=== PATIENT | female | born 1995 | race Caucasian/White ===

== ENCOUNTER 2019-09-10 10:57 | Emergency (ER) | payer SELFPAY ==
[2019-09-10 11:05] VITALS: BP 146/101; PULSE 106; RESP 18; TEMP 37.2; O2SAT 99; BMI 27.4
[2019-09-10 11:10] VITALS: BP 146/101; PULSE 76; RESP 18; O2SAT 100
--- NOTE | 2019-09-10 11:27 | W.ED.GENADLT ---
HPI - General Adult General: Chief complaint: General Medical Stated complaint: ALERGIC REACTION Time Seen by Provider: 09/10/19 11:04 History of Present Illness: HPI narrative: 24-year-old female comes in complaining of a rash that started this morning since on her trunk and extremities. She tried some [id number] Benadryl prior products without much improvement. She is not had a rash like this before she denies any trouble breathing or swallowing. It is only mildly pruritic on the extremities Onset (ago): hour(s) Location: chest, back, abdomen, left, right, upper extremity and lower extremity Severity: moderate Quality: other (Pruritic) Relieving factors: none Exacerbating factors: none Associated symptoms: Reports no associated symptoms; Deny chest pain, cough, dyspnea, fevers/chills, headache(s), malaise, nausea or rash Treatments prior to arrival: other (Benadryl) Review of Systems Const: Denies: malaise ENMT: Denies: throat pain, ear or mastoid pain, nasal discharge or nasal congestion Card: Denies: chest pain Resp: Denies: dyspnea GI: Denies: nausea : Denies: flank pain, difficulty voiding, dysuria, urinary frequency or urinary urgency Skin/Breast: Denies: rash or pruritus Neuro: Denies: headache(s) PFSH ED PFSH: Social History Smoking and tobacco status: current every day smoker Female Reproductive History: Date of last menstrual period: 08/21/19 Physical Exam Const: COMMON NORMALS: no acute distress GENERAL APPEARANCE: cooperative and comfortable ORIENTATION/CONSCIOUSNESS: Yes awake, Yes oriented to person, Yes oriented to place and Yes oriented to time HENMT: COMMON NORMALS: normocephalic, atraumatic, hearing grossly normal bilaterally, external ears normal, EAC's normal, TM's normal bilaterally, Normal nasal mucous membranes and turbinates present, moist oral mucous membranes and oropharynx normal HEAD & SCALP: normocephalic and atraumatic NOSE: Normal nasal mucous membranes and turbinates present EXTERNAL EAR: Yes external ears normal EXTERNAL AUDITORY CANAL: EAC's normal TYMPANIC MEMBRANE: TM's normal bilaterally Eye: COMMON NORMALS: Equal, round and reactive pupils present, EOMs intact bilaterally, conjunctivae normal and no scleral icterus CONJUNCTIVA: Yes conjunctivae normal PUPIL: Yes Equal, round and reactive pupils present Neck/C-Spine: COMMON NORMALS: full ROM, no lymphadenopathy, supple and no JVD Lymph: LYMPHATIC: no lymphadenopathy noted and no lymphedema noted Resp: COMMON NORMALS: normal respiratory effort, No retractions, No use of accessory muscles and clear to auscultation bilaterally AUSCULTATION: clear to auscultation bilaterally Cardio: COMMON NORMALS: no JVD, regular rate, regular rhythm and No murmurs present (Cardio) RATE: regular rate RHYTHM: regular rhythm GI: COMMON NORMALS: Soft to palpation and No hepatosplenomegaly present AUSCULTATION: Yes normoactive bowel sounds PALPATION: Yes Soft to palpation, No Tenderness to palpation present (GI), No Guarding due to palpation present (GI) and Yes No hepatosplenomegaly present Extremity: COMMON NORMALS: normal to inspection, capillary refill normal, no clubbing, cyanosis or edema, no calf tenderness and no pedal edema Neuro: SENSORIUM/ORIENTATION: Yes oriented to person, Yes oriented to place and Yes oriented to time Skin: NARRATIVE SKIN EXAM: Fine confluent facial rash on the upper extremities lower extremities and the trunk it is mildly reddened raised and coalescing. There is no urticarial wheals or hives. Course Vital Signs: Vital signs: Vital Signs Temperature 98.9 F 09/10/19 11:05 Pulse Rate 86 09/10/19 12:37 Respiratory Rate 14 09/10/19 12:37 Blood Pressure 131/85 09/10/19 12:37 Pulse Oximetry 100 09/10/19 12:37 MDM - General Adult MDM Narrative: Medical decision making narrative: Reviewed findings with the patient. Discharge home on Medrol Dosepak hydroxyzine return to the emergency room if worsens or changes follow-up with primary care. Discharge Plan Discharge Patient Disposition: Home, Self-Care Clinical Impression: Allergic reaction Condition: Stable Prescriptions: New Medrol (Jose David) 4 mg tablets,dose pack See Rx Instructions .ROUTE .COMPLEX Qty: 21 RF: 0 hydroxyzine pamoate 25 mg capsule 25 mg PO Q6H PRN (Reason: itching) Qty: 20 RF: 0 No Action Isibloom 0.15-0.03 mg Tablet 1 tab PO DAILY RF: 0 Discharge Orders: Discharge Order (Routine); Ordered 09/10/19 Ordered By: Dixon Patton Discharge Diet: Usual diet Discharge Activity: Increase activity as tolerated Activity Restrictions/Additional Instructions: Follow-up with your primary care doctor as needed return to the emergency room if if significant worsening or change symptoms Discharge Date/Time: 09/10/19 12:38 Coding Level of Care Code ED Installation Superintendent for Celsa Fwd Exam Comprehensive
[2019-09-10] MEDS: famotidine 20 mg/2 mL INJ 40 MG IVP (11:49)
[2019-09-10] MEDS: diphenhydrAMINE 50 mg/mL SDV 1mL 25 MG IM (11:49)
[2019-09-10 12:37] VITALS: BP 131/85; PULSE 86; RESP 14; O2SAT 100
== END 2019-09-10 12:38 | disposition home or self-care (01) ==
PROVIDERS: Emergency Provider Family Medicine
DX: T78.40XA Allergy, unspecified, initial encounter (principal); F17.210 Nicotine dependence, cigarettes, uncomplicated
CPT/HCPCS: 12345; 96374; 96375; 99282; 99283; J1200; J2930; J3490

== ENCOUNTER 2020-10-15 10:44 | Outpatient (CLI) | payer BC, SELFPAY ==
--- NOTE | 2020-10-15 11:00 | MR_ITS ---
WS: [id number] MRI RIGHT KNEE NONCONTRAST TECHNIQUE: Axial PD, coronal PD fat sat, coronal PD, sagittal PD, and sagittal PD fat-sat images obta ined. CLINICAL INFORMATION: RIGHT ANTERIOR KNEE PAIN COMPARISON: None. FINDINGS: Normal anatomic alignment. Distal quadriceps and patella tendons are intact. Normal patella. Normal A CL and PCL. Normal medial and lateral meniscus. No acute appearing meniscal tears. Tibial plateau is normal in appearance. Medial and lateral collateral ligaments are normal. No bone marrow contusion or fracture. Normal popliteal fossa. Normal medial and lateral patellar retinaculum. Mild chondromalacia patella. No subchondral edema. IMPRESSION: 1. Normal ACL and PCL. 2. No acute appearing meniscal tears. 3. Mild chondromalacia patella. No subchondral edema. 4. Medial and lateral collateral ligaments are normal. 5. No other significant findings. Outbridge grading: grade I: focal areas of hyperintensity with normal contour
== END 2020-10-15 10:45 | disposition home or self-care (01) ==
LOC: RADSHAW 10:47
PROVIDERS: Visit Provider Nurse Practitioner Family
DX: M25.561 Pain in right knee (principal); M22.41 Chondromalacia patellae, right knee
CPT/HCPCS: 73721

== ENCOUNTER 2020-11-03 08:22 | Outpatient (RCR) | payer BC, SELFPAY | END 2020-11-24 23:59 | disposition home or self-care (01) | LOC: SPT 08:22 | PROVIDERS: PCP Nurse Practitioner Family; Referring Provider Orthopaedic Surgery; Visit Provider Orthopaedic Surgery | DX: M25.561 Pain in right knee (principal) | CPT/HCPCS: 97110; 97162; G0283 ==

== ENCOUNTER 2020-11-25 06:00 | Outpatient (RCR) | payer BC, SELFPAY | END 2020-12-24 23:59 | disposition home or self-care (01) | LOC: SPT 06:00 | PROVIDERS: PCP Nurse Practitioner Family; Referring Provider Orthopaedic Surgery; Visit Provider Orthopaedic Surgery | DX: M25.561 Pain in right knee (principal) | CPT/HCPCS: 97110; G0283 ==

== ENCOUNTER → 2022-01-09 12:03 | Outpatient (BNVA) | payer BC, SELFPAY | PROVIDERS: PCP Nurse Practitioner Family; Visit Provider Family Medicine | DX: M79.671 Pain in right foot (principal); W22.09XA Striking against other stationary object, initial encounter | CPT/HCPCS: 73630 ==

== ENCOUNTER 2023-04-18 07:11 | Outpatient (CLI) | payer OTHER, SELFPAY ==
--- NOTE | 2023-04-18 | US_ITS ---
WS: [id number] OBSTETRICAL ULTRASOUND COMPLETE HISTORY: ANATOMY SCAN COMPARISON: None available. Single intrauterine gestation in Cephalic presentation. Cervix is Closed and normal length. Cervical length is 4.5 cm. Normal amount of amniotic fluid surrounds the fetus. Placenta: Posterior, no previa or abruption. Placenta grade 1 Heart: 133 BPM. Four chambers are identified. RIGHT and LEFT outflow tracts are unremarkable. Anatomy: Intracranial structures and spine are normal. kidneys, stomach and urinary bladd er are unremarkable. Abdominal wall, three-vessel cord and cord insertion site are normal. 4 extremities are present. profile: Unremarkable. Gender: Male. measurements: BPD = 5.3 cm = 22w0d; HC = 19.6 cm = 21w5d; AC = 16.5 cm = 21w4d; FL = 3.7 cm = 21w4d; EFW: 438 g. Biometry is internally concordant. AGA by ultrasound: 21w5d KARMA by ultrasound: 08/24/2023 IMPRESSION: 1. Single intrauterine gestation of 21w5d with an KARMA of 08/24/2023. 2. Unremarkable screening survey of anatomy.
== END 2023-04-18 07:12 | disposition home or self-care (01) ==
LOC: RAD 07:12
PROVIDERS: PCP Nurse Practitioner Family; Visit Provider Family Medicine
DX: Z36.89 Encounter for other specified antenatal screening (principal)
CPT/HCPCS: 76805

== ENCOUNTER 2023-08-30 16:23 | Inpatient (IN) | payer OTHER, SELFPAY ==
[2023-08-30] VITALS (28 sets, daily range): BP systolic 117–154; BP diastolic 61–87; PULSE 72–141; RESP 18; TEMP 36.9–37.1; BMI 33.7
[2023-08-30] MEDS: lactated ringers 1,000 ML 125 ML IV (16:34)
--- NOTE | 2023-08-30 16:36 | P.HP_ITS ---
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 PMHx includes borderline pre-eclampsia in her first - not on blood pressure medication and not induced early. Denies LOF, vaginal bleeding. Good movement. care was good and starting in first trimester with [facility]- transferred in 2nd trimester with good regular care following. Labs Blood type OB HPI: A (+) positive Rubella: Equivocal RPR: Negative GBS: Negative HBsAG: Negative Other Lab Information: HIV negative HCV Ab negative GC/Chlam negative,Trich negative Initial H/H 12.4/36.5 1hr GTT passed (93) 3rd trimester H/H 11.2/32.8 Review of Systems 2 Const: Denies: fever(s) or chills Card: Denies: chest pain or palpitations Resp: Denies: dyspnea or productive cough : Denies: dysuria or vaginal bleeding Skin/Breast: Denies: rash or pruritus Medications/Allergies Home Medications Medication Instructions Recorded Confirmed Last Taken Type tramadol 50 mg tablet 50 mg PO BID PRN pain 5 days #10 01/09/22 01/09/22 Unknown Rx tabs Allergies Allergy/AdvReac Type Severity Reaction Status Date / Time amoxicillin Allergy Unknown Verified 01/09/22 11:45 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 2 PFSH: Social History Smoking and tobacco/nicotine status: current every day tobacco/nicotine user History History History 2 3 Term 1 0 Miscarriages/Ectopic 1 Living Children 1 Vitals/I&O/Wt Last Vital Signs Pulse 90 08/30/23 16:34 BP 139/70 08/30/23 16:34 Physical Exam 2 Const: COMMON NORMALS: no limitations, healthy appearing and alert OTHER: pain with contractions Resp: COMMON NORMALS: normal respiratory effort and clear to auscultation bilaterally Cardio: COMMON NORMALS: no JVD, regular rate, regular rhythm, S1 normal heart sound present, S2 normal heart sound present and No murmurs present (Cardio) Extremity: NARRATIVE EXTREMITY EXAM: No LE edema Psych: COMMON NORMALS: normal affect and speech normal Data 08/30/23 16:20 Results Labs OB ([facility]): 2 Blood Type A Positive 08/30/23 Antibody Screen Negative 08/30/23 Hct 32.2 % (36-47) L 08/30/23 Hgb 10.30 g/dL (11.27-16.99) L 08/30/23 Rho(D) Type Rh positive 08/30/23 Plt Count 232 10^3/cmm (157-399) 08/30/23 Urine Opiates Screen Negative ng/mL (Negative) 08/30/23 Ur Barbiturates Screen Negative ng/mL (Negative) 08/30/23 Ur Phencyclidine Scrn Negative ng/mL (Negative) 08/30/23 Ur Amphetamines Screen Negative ng/mL (Negative) 08/30/23 U Benzodiazepines Scrn Negative ng/mL (Negative) 08/30/23 Urine Cocaine Screen Negative ng/mL (Negative) 08/30/23 U Marijuana (THC) Screen Negative ng/mL (Negative) 08/30/23 A&P Assessment and plan (1) Term : (2) Spontaneous onset of labor: Plan 28yo at 40w0d admitted for labor. Routine CBC, Blood typing. Expectant management. Initial SVE 6cm. Continuous EFM. Category I FHT on admission. Fentanyl protocol, may have epidural if desired. Attestations 2 Medical Necessity Statement*: Mary Ellen Lindsay's hospital stay will require greater than 2 midnights for labor and delivery and care. Coding Level of Care Code Acute Code for Chg Fwd Diagnoses Term Z34.90 Spontaneous onset of labor
[2023-08-30 16:38] LABS: Basophils % 0.3 %; Eosinophils # 0.1 10^3/uL (0.0-0.8); Eosinophils % 0.6 %; Hematocrit 32.2 % (36-47); Lymphocytes # 1.1 10^3/uL (0.8-4.8); Lymphocytes % 10.5 %; Mean Corpuscular Hemoglobin 26.7 pg (27-33); Mean Corpuscular Volume 83.4 fl (85-98); Mean Platelet Volume 11.1 fL (7.4-10.4); Monocytes # 0.7 10^3/uL (0.2-0.9); Monocytes % 6.7 %; Neutrophils # 8.79 10^3/uL (1.8-7.7); Nucleated Red Blood Cells % 0 %; Platelet Count 232 10^3/cmm (157-399); Red Blood Count 3.86 10^6/uL (3.85-5.65); Red Cell Distribution Width 14.9 % (12.1-15.1); White Blood Count 10.86 10^3/uL (3.29-11.43)
[2023-08-30 16:51] LABS: Amphetamines Screen Urine Negative (Negative); Barbiturates Screen Urine Negative (Negative); Benzodiazepines Screen Urine Negative (Negative); Cocaine Screen Urine Negative (Negative); Opiate Screen Urine Negative (Negative); PCP Screen Urine Negative (Negative); THC Screen Urine Negative (Negative)
[2023-08-30] MEDS: lidocaine 2% INJ 20 mL INJECTION (20:45)
--- NOTE | 2023-08-30 21:49 | P.PCNOB_ITS ---
Delivery Note: Date of delivery: August 30, 2023 Pre-delivery diagnoses: Term Spontaneous labor Post-delivery diagnoses: Term delivery of viable male Procedure: Spontaneous vaginal delivery Delivering Physician: Angela Bennett DO Estimated blood loss (mL): 200 Pre-Delivery Course: Patient admitted on 08/30/2023 with spontaneously labor with initial SVE of 6/90/- 3. She gradually progressed with SROM at approximately 2030. She then quickly progressed to complete. Delivery: Patient progressed to complete. Patient placed in lithotomy position. Patient pushed with adequate effort. Head delivered in OA position, no nuchal cord was present. Shoulders and rest of body delivered traction applied no anesthesia. Approximately 10 seconds from time of head delivery to delivery of anterior shoulder. Mouth and nares bulb suctioned. Infant placed on maternal abdomen. Cord clamped and cut after 1 minute delay. Placenta spontaneously delivered and noted to be intact. Patient refused Pitocin. Fundus was noted to be firm with massage. The vagina and cervix were inspected and midline second- degree laceration was noted. Repaired using 3-0 Vicryl and lidocaine 2% of approximately 6 mL for anesthesia. Fundus was again noted firm. Male born at 2041 with 9/9 weighing 9lb 15oz and measuring 22 in length, 14.5 inches head circumference, 14.75 inches chest circumference. Placenta noted to be intact with centrally inserted umbilical cord and three- vessel cord. Complications: Maternal none Infant none History History History 3 Term 2 0 Miscarriages/Ectopic 1 Living Children 2 A&P Assessment and plan (1) Spontaneous vaginal delivery: Coding Level of Care Code Acute Code for Chg Fwd Diagnoses Spontaneous vaginal delivery O80
[2023-08-31] VITALS (8 sets, daily range): BP systolic 120–138; BP diastolic 69–90; PULSE 81–117; RESP 16–18; TEMP 36.6–37.5; O2SAT 98–99
[2023-08-31] MEDS: PRENATAL VIT NO.130/IRON/FOLIC 1 EACH TABLET PO (09:12)
[2023-08-31] MEDS: ferrous sulfate EC 325 mg Tablet PO (09:12)
[2023-08-31] MEDS: docusate sodium 100 mg Capsule PO (09:12)
[2023-08-31 11:50] LABS: Hematocrit 30.7 % (36-47); Mean Corpuscular HGB Conc 31.9 g/dL (30-55); Mean Corpuscular Hemoglobin 26.6 pg (27-33); Mean Corpuscular Volume 83.2 fl (85-98); Mean Platelet Volume 11.4 fL (7.4-10.4); Platelet Count 240 10^3/cmm (157-399); Red Blood Count 3.69 10^6/uL (3.85-5.65); Red Cell Distribution Width 14.9 % (12.1-15.1); White Blood Count 15.18 10^3/uL (3.29-11.43)
--- NOTE | 2023-08-31 20:19 | PM.OBGYDC ---
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 She gradually progressed with SROM at approximately 2030. She then quickly progressed to complete. Delivery: Patient progressed to complete. Patient placed in lithotomy position. Patient pushed with adequate effort. Head delivered in OA position, no nuchal cord was present. Shoulders and rest of body delivered with gentle traction applied no anesthesia. Approximately 5-10 seconds from time of head delivery to delivery of anterior shoulder. Mouth and nares bulb suctioned. Infant placed on maternal abdomen. Cord clamped and cut after 1 minute delay. Placenta spontaneously delivered and noted to be intact. Patient refused Pitocin. Fundus was noted to be firm with massage. The vagina and cervix were inspected and midline second-degree laceration was noted. Repaired using 3-0 Vicryl and lidocaine 2% of approximately 6 mL for anesthesia. Fundus was again noted firm. Male born at 2041 with 9/9 weighing 9lb 15oz and measuring 22 in length, 14.5 inches head circumference, 14.75 inches chest circumference. Placenta noted to be intact with centrally inserted umbilical cord and three-vessel cord. Complications: Maternal none Infant none course: Patient underwent on 08/30/23. course was uncomplicated. Following delivery patient ambulated well, tolerated a normal diet without nausea or vomiting. Pain was well controlled on PO medications, well, no leg/calf pain, no calf/leg swelling, normal urination, passing gas and normal bowel movements. Vaginal bleeding thin lochia and decreasing. labs significant for hemoglobin 9.8 down from 10.3. She is started on supplemental iron. Follow-up planned for 2 and 6 weeks . Warning signs for endometritis, pre-eclampsia, DVT/PE, mastitis were reviewed, discussed additional warning signs including increased vaginal bleeding, worsening abdominal pain. Pelvic rest and activity precautions reviewed as well. She is discharged on 08/31/23 in stable condition. Information Peripartum Data: Infant Delivery Method: Vaginal Physical Exam Const: COMMON NORMALS: no limitations, healthy appearing and alert Neck/C-Spine: COMMON NORMALS: no JVD Resp: COMMON NORMALS: normal respiratory effort and clear to auscultation bilaterally AUSCULTATION: clear to auscultation bilaterally Cardio: COMMON NORMALS: no JVD, regular rate, regular rhythm, S1 normal heart sound present, S2 normal heart sound present and No murmurs present (Cardio) RATE: regular rate RHYTHM: regular rhythm HEART SOUNDS: S1 normal heart sound present and S2 normal heart sound present : OTHER: Uterine fundus firm and below the umbilicus Extremity: NARRATIVE EXTREMITY EXAM: No LE edema Neuro: SENSORIUM/ORIENTATION: Yes alert Psych: COMMON NORMALS: normal affect and speech normal SPEECH: Yes normal speech History History History 3 Term 2 0 Miscarriages/Ectopic 1 Living Children 2 Discharge Data Studies Completed and Pending Laboratory Results WBC 15.18 10^3/uL (3.29-11.43) H 08/31/23 11:10 RBC 3.69 10^6/uL (3.85-5.65) L 08/31/23 11:10 Hgb 9.80 g/dL (11.27-16.99) L 08/31/23 11:10 Hct 30.7 % (36-47) L 08/31/23 11:10 MCV 83.2 fl (85-98) L 08/31/23 11:10 MCH 26.6 pg (27-33) L 08/31/23 11:10 MCHC 31.9 g/dL (30-55) 08/31/23 11:10 RDW 14.9 % (12.1-15.1) 08/31/23 11:10 Plt Count 240 10^3/cmm (157-399) 08/31/23 11:10 MPV 11.4 fL (7.4-10.4) H 08/31/23 11:10 Neut % (Auto) 81.0 % 08/30/23 16:20 Lymph % (Auto) 10.5 % 08/30/23 16:20 Bleckley % (Auto) 6.7 % 08/30/23 16:20 Eos % (Auto) 0.6 % 08/30/23 16:20 Baso % (Auto) 0.3 % 08/30/23 16:20 Neut # (Auto) 8.79 10^3/uL (1.8-7.7) H 08/30/23 16:20 Lymph # (Auto) 1.1 10^3/uL (0.8-4.8) 08/30/23 16:20 Bleckley # (Auto) 0.7 10^3/uL (0.2-0.9) 08/30/23 16:20 Eos # (Auto) 0.1 10^3/uL (0.0-0.8) 08/30/23 16:20 Baso # (Auto) 0.0 10^3/uL (0.0-0.1) 08/30/23 16:20 Nucleated RBC % (auto) 0 % 08/30/23 16:20 Nucleated RBCs # 0.0 /100WBC 08/30/23 16:20 Urine Opiates Screen Negative ng/mL (Negative) 08/30/23 16:00 Ur Barbiturates Screen Negative ng/mL (Negative) 08/30/23 16:00 Ur Phencyclidine Scrn Negative ng/mL (Negative) 08/30/23 16:00 Ur Amphetamines Screen Negative ng/mL (Negative) 08/30/23 16:00 U Benzodiazepines Scrn Negative ng/mL (Negative) 08/30/23 16:00 Urine Cocaine Screen Negative ng/mL (Negative) 08/30/23 16:00 U Marijuana (THC) Screen Negative ng/mL (Negative) 08/30/23 16:00 Blood Type A Positive 08/30/23 16:20 Rho(D) Type Rh positive 08/30/23 16:20 Antibody Screen Negative 08/30/23 16:20 Vitals Last Vital Signs Temp 97.9 F 08/31/23 16:00 Pulse 91 08/31/23 16:00 Resp 16 08/31/23 16:00 BP 130/83 08/31/23 16:00 Pulse Ox 98 08/31/23 06:30 O2 Del Method Room Air 08/31/23 16:00 Results Labs OB ([facility]): Blood Type A Positive 08/30/23 Antibody Screen Negative 08/30/23 Hct 30.7 % (36-47) L 08/31/23 Hgb 9.80 g/dL (11.27-16.99) L 08/31/23 Rho(D) Type Rh positive 08/30/23 Plt Count 240 10^3/cmm (157-399) 08/31/23 Urine Opiates Screen Negative ng/mL (Negative) 08/30/23 Ur Barbiturates Screen Negative ng/mL (Negative) 08/30/23 Ur Phencyclidine Scrn Negative ng/mL (Negative) 08/30/23 Ur Amphetamines Screen Negative ng/mL (Negative) 08/30/23 U Benzodiazepines Scrn Negative ng/mL (Negative) 08/30/23 Urine Cocaine Screen Negative ng/mL (Negative) 08/30/23 U Marijuana (THC) Screen Negative ng/mL (Negative) 08/30/23 Discharge Plan Discharge Patient Disposition: Home Condition: Stable Prescriptions: New docusate sodium 100 mg Capsule 100 mg PO BID Qty: 60 0RF ferrous sulfate 325 mg (65 mg iron) Tablet,Delayed Release (Dr/Ec) 325 mg PO BREAKFAST Qty: 90 0RF ibuprofen 800 mg Tablet 800 mg PO TID Qty: 90 0RF Continued Vitamin C 100 mg Tablet 100 mg PO DAILY elderberry fruit 200 mg Capsule 200 mg PO DAILY Vitamin 27 mg iron- 800 mcg Tablet 1 tab PO DAILY Discharge Orders: Discharge Order (Routine); Ordered 08/31/23 Ordered By: Angela Bennett Referrals: Angela Bennett DO [Physician] - 09/14/23 2:45 pm Discharge Diet: Regular Discharge Activity: Increase activity as tolerated Patient Instructions: Depression (DC), Bleeding (DC), Preeclampsia and Eclampsia After Delivery (GEN), Hemorrhage (DC), OB Discharge Report, OB Food/Drug Interaction Guide, Opioid Safety, OB Home Care Activity Restrictions/Additional Instructions: Pelvic rest for 6 weeks. 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
== END 2023-08-31 22:45 | disposition home or self-care (01) | DRG 807 ==
LOC: OPOB 16:23 → OBGYN 16:23
PROVIDERS: Admitting Provider Family Medicine; PCP Nurse Practitioner Family; Visit Provider Family Medicine
DX: O99.334 Smoking (tobacco) complicating childbirth (principal); Z37.0 Single live birth; O70.1 Second degree perineal laceration during delivery; Z3A.40 40 weeks gestation of pregnancy; F17.200 Nicotine dependence, unspecified, uncomplicated
CPT/HCPCS: 36415; 59409; 80306; 83986; 85025; 85027; 86850; 86900; J7120

== ENCOUNTER 2025-03-14 10:05 | Outpatient (CLI) | payer MEDICAID, SELFPAY ==
--- NOTE | 2025-03-14 10:15 | US_ITS ---
WS: [id number] OB ultrasound, 03/14/2025 Clinical Data: O36.80X0 - with inconclusive viability, n... Comparison: None. Findings: There is a single intrauterine in the breech presentation. The placenta is anterior. There is a small amount of amnionic fluid. No heart motion is observed. Measurements of growth and development: BPD: 3.1 cm 15 weeks 5 days HC: 12.9 cm 16 weeks 4 days The estimated gestational age is 16w1d with an KARMA of approximately 08/28/2025. / OB limited [id number] Impression: 1. Single intrauterine in breech presentation. 2. Estimated gestational age 16w1d with an KARMA of 08/28/2025. 3. heart not seen..
== END 2025-03-14 10:06 | disposition home or self-care (01) ==
LOC: RAD 10:07
PROVIDERS: PCP Nurse Practitioner Family; Visit Provider Obstetrics & Gynecology
DX: O36.80X0 Pregnancy with inconclusive fetal viability, not applicable or unspecified (principal); O32.1XX1 Maternal care for breech presentation, fetus 1; Z3A.16 16 weeks gestation of pregnancy
CPT/HCPCS: 76815; 81025

== ENCOUNTER 2025-03-15 07:13 | Observation (INO) | payer MEDICAID, SELFPAY ==
[2025-03-15] VITALS (18 sets, daily range): BP systolic 109–141; BP diastolic 61–79; PULSE 68–88; RESP 16; TEMP 36.6–36.9; O2SAT 99
[2025-03-15 08:04] LABS: Hematocrit 37.8 % (36-47); Hemoglobin 12.70 g/dL (11.27-16.99); Mean Corpuscular HGB Conc 33.6 g/dL (30-55); Mean Corpuscular Hemoglobin 29.6 pg (27-33); Mean Corpuscular Volume 88.1 fl (85-98); Nucleated Red Blood Cells % 0 %; Platelet Count 214 10^3/cmm (157-399); Red Blood Count 4.29 10^6/uL (3.85-5.65); White Blood Count 6.03 10^3/uL (3.29-11.43)
--- NOTE | 2025-03-15 08:10 | PM.OBGYHP ---
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 She was seen yesterday in office with findings. Review of Systems Narrative: OB: movement: [] Const: Denies: fever(s) or chills Card: Denies: chest pain, palpitations or syncope Resp: Denies: dyspnea GI: Denies: abdominal pain, nausea or vomiting : Denies: flank pain, dysuria or urinary frequency Musc: Denies: back pain or extremity swelling Skin/Breast: Denies: rash, pruritus or breast pain Neuro: Denies: headache(s) or dizziness Psych: Denies: anxiety, depression or mood swings Endo: Denies: polyuria, tired all the time, cold intolerance or heat intolerance Waylon/Lymph: Denies: easy bruising or easy bleeding All/Imm: Denies: urticaria Medications/Allergies Home Medications ?Medication ?Instructions ?Recorded ?Confirmed ?Last Taken ?Type ascorbic acid (vitamin C) 100 mg 100 mg PO DAILY 08/30/23 03/14/25 08/30/23 08:00 History tablet (Vitamin C) elderberry fruit 200 mg capsule 200 mg PO DAILY 08/30/23 03/14/25 08/30/23 08:00 History vits no.124-ferrous fum 1 tab PO DAILY 08/30/23 03/14/25 08/30/23 08:00 History 27 mg iron-folic acid 800 mcg tablet ( Vitamin) Allergies Allergy/AdvReac Type Severity Reaction Status Date / Time amoxicillin Allergy Unknown Verified 03/14/25 08:28 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 Date GA/Weeks Outcome Route Wt Inf Gender Labor Lgth Comp. Anesthesia Location Unknown Dr. jon Caraballo 09/27/12 40 live - full term Vaginal 7 lb [address] Wilton Benz 08/28/23 40 live - full term Vaginal 9 lb [address] OLEKSANDR Unknown Care KARMA Calculator Estimated Delivery Date Method Current WG Current Estimate 08/28/25 LMP (Certain) 16w 2d Physical Exam Narrative: Appearance: grossly normal Attitude: calm and engaged, appropriate eye contact Const: no acute distress, oriented x3 cooperative Chest: Symmetrical chest wall rise Resp: normal respiratory effort, clear to auscultation bilaterally Cardio: regular rate and regular rhythm GI: Soft to palpation, gravid, Non Tender, no Guarding : No Uterine tenderness Extremity: normal inspection, negative for no pedal edema Neuro: oriented x3 and moves all extremities, speech normal Psych: mental status grossly normal, and Normal thought process present Skin: no rashes or lesions noted Data 03/15/25 07:40 Results Labs OB ([facility]): Obstetrics 03/14/25 Blood Type A Positive 08/30/23 Antibody Screen Negative 08/30/23 Hct, (36-47) 37.8 % Today Hgb, (11.27-16.99) 12.70 g/dL Today Rho(D) Type Rh positive 08/30/23 Plt Count, (157-399) 214 10^3/cmm Today HCG, Qual, (Negative) Positive H 03/14/25 Urine Opiates Screen, (Negative) Negative ng/mL 08/30/23 Ur Barbiturates Screen, (Negative) Negative ng/mL 08/30/23 Ur Phencyclidine Scrn, (Negative) Negative ng/mL 08/30/23 Ur Amphetamines Screen, (Negative) Negative ng/mL 08/30/23 U Benzodiazepines Scrn, (Negative) Negative ng/mL 08/30/23 Urine Cocaine Screen, (Negative) Negative ng/mL 08/30/23 U Marijuana (THC) Screen, (Negative) Negative ng/mL 08/30/23 A&P Assessment and plan 1. IUFD at less than 20 weeks of gestation: Proceed with cytotec IOL. Discussed possibilities of retained products and potential risk of D&C for such. Placenta will go to pathology. CBC, T&S. PDMP PDMP Reviewed: Not Reviewed Attestations Medical Necessity Statement*: NA Coding Level of Care Code Acute Code for Chg Fwd Diagnoses IUFD at less than 20 weeks of gestation O02.1
--- NOTE | 2025-03-15 19:50 | P.PCNOB_ITS ---
Delivery Note: Date of delivery: March 15, 2025 Pre-delivery diagnoses: Feta demise at 16+2 weeks Post-delivery diagnoses: same Procedure: Vaginal delivery Delivering Physician: Socorro Aguilar MD Estimated blood loss (mL): 150 Findings: breech nonviable male Pre-Delivery Course: IOL with cytotec x 3 doses, 400 mcg each Delivery: With maternal pushing effort breech baby delivered in intact sac. Sac ruptured and cord cut. Baby given to Mom. Mom declined any further delivery medications. She was encouraged to do self fundal massage for 5 minutes or so then push. Placenta slowly delivered with her efforts alone. Parents offered pastoral care and has that covered with family. Bleeding scant. Family given time to grieve. History History History 3 Term 2 0 Miscarriages/Ectopic 1 Living Children 2 Past Pregnancies Del. Date GA/Weeks Outcome Route Wt Inf Gender Labor Lgth Comp. Anesth esia Location Unknown Dr. jon LEGGETT 09/27/12 40 live - full term Vaginal 7 lb [address] Wilton Leggett 08/28/23 40 live - full term Vaginal 9 lb [address] Wilton LEGGETT A&P PDMP PDMP Reviewed: Not Reviewed Coding Level of Care Code Acute Code for Chg Fwd
--- NOTE | 2025-03-15 19:58 | P.DS_ITS ---
Discharge Providers [employer] Date of Admission: 03/15/25 07:13 Date of Discharge: 03/15/25 Attending Provider at Admission: Socorro Aguilar MD Attending Provider at Discharge: Socorro Aguilar MD Primary Care Provider: KARTIK Mratino Diagnoses at Discharge Discharge Diagnosis 1. IUFD at less than 20 weeks of gestation: Reason for Visit Reason for Visit: demise Hospital Course Hospital Course Admitted for cytotec due to demise. She had 3 total doses. Delivery was vaginal. Placenta sent for pathology. After recovery phase patient discharged home to see me in 2 weeks. Physical Exam : OTHER: scant bleeding uterus firm History History History 3 Term 2 0 Miscarriages/Ectopic 1 Living Children 2 Past Pregnancies Del. Date GA/Weeks Outcome Route Wt Inf Gender Labor Lgth Comp. Anesth esia Location Unknown Dr. jon LEGGETT 09/27/12 40 live - full term Vaginal 7 lb [address] Wilton Leggett 08/28/23 40 live - full term Vaginal 9 lb [address] OLEKSANDR Unknown Discharge Data Studies Completed and Pending Laboratory Results WBC 6.03 10^3/uL (3.29-11.43) 03/15/25 07:40 RBC 4.29 10^6/uL (3.85-5.65) 03/15/25 07:40 Hgb 12.70 g/dL (11.27-16.99) 03/15/25 07:40 Hct 37.8 % (36-47) 03/15/25 07:40 MCV 88.1 fl (85-98) 03/15/25 07:40 MCH 29.6 pg (27-33) 03/15/25 07:40 MCHC 33.6 g/dL (30-55) 03/15/25 07:40 RDW 13.8 % (12.1-15.1) 03/15/25 07:40 Plt Count 214 10^3/cmm (157-399) 03/15/25 07:40 MPV 11.2 fL (7.4-10.4) H 03/15/25 07:40 Neut % (Auto) 62.3 % 03/15/25 07:40 Lymph % (Auto) 25.4 % 03/15/25 07:40 [place] % (Auto) 9.5 % 03/15/25 07:40 Eos % (Auto) 2.0 % 03/15/25 07:40 Baso % (Auto) 0.5 % 03/15/25 07:40 Neut # (Auto) 3.76 10^3/uL (1.8-7.7) 03/15/25 07:40 Lymph # (Auto) 1.5 10^3/uL (0.8-4.8) 03/15/25 07:40 [place] # (Auto) 0.6 10^3/uL (0.2-0.9) 03/15/25 07:40 Eos # (Auto) 0.1 10^3/uL (0.0-0.8) 03/15/25 07:40 Baso # (Auto) 0.0 10^3/uL (0.0-0.1) 03/15/25 07:40 Nucleated RBC % (auto) 0 % 03/15/25 07:40 Nucleated RBCs # 0.0 /100WBC 03/15/25 07:40 Blood Type A Positive 03/15/25 07:40 Rho(D) Type Rh positive 03/15/25 07:40 Antibody Screen Negative 03/15/25 07:40 Vitals Last Vital Signs Temp 98.4 F 03/15/25 16:10 Pulse 73 03/15/25 19:45 BP 133/79 03/15/25 19:45 O2 Del Method Room Air 03/15/25 07:45 Results Labs OB ([facility]): Obstetrics US 03/14/25 Blood Type A Positive Today Antibody Screen Negative Today Hct, (36-47) 37.8 % Today Hgb, (11.27-16.99) 12.70 g/dL Today Rho(D) Type Rh positive Today Plt Count, (157-399) 214 10^3/cmm Today HCG, Qual, (Negative) Positive H 03/14/25 Urine Opiates Screen, (Negative) Negative ng/mL 4 Ur Barbiturates Screen, (Negative) Negative ng/mL 08/29 Ur Phencyclidine Scrn, (Negative) Negative ng/mL Ur Amphetamines Screen, (Negative) Negative ng/mL 08/29 U Benzodiazepines Scrn, (Negative) Negative ng/mL 08/29 Urine Cocaine Screen, (Negative) Negative ng/mL 4 U Marijuana (THC) Screen, (Negative) Negative ng/mL 08/17 Discharge Plan Discharge Patient Disposition: Home Condition: Stable Prescriptions: New acetaminophen 325 mg Tablet 650 mg PO Q6H PRN (Reason: Mild pain or temp > 100.4) Qty: 0 0RF Continued Vitamin C 100 mg Tablet 100 mg PO DAILY elderberry fruit 200 mg Capsule 200 mg PO DAILY Discontinued Vitamin 27 mg iron- 800 mcg Tablet 1 tab PO DAILY Discharge Order = DC NOW: Discharge Order (Routine); Ordered 03/15/25 Ordered By: Socorro Aguilar Referrals: Socorro Aguilar MD [Physician, [employer]] Discharge Diet: Usual diet Discharge Activity: Increase activity as tolerated Patient Instructions: Depression (DC), Opioid Safety (DC), Preeclampsia and Eclampsia After Delivery (GEN), Hemorrhage (DC), OB Discharge Report, OB Food/Drug Interaction Guide, Opioid Safety, OB Home Care, OB Vaginal Deliveries - [facility], Patient Portal & [place] Instructions, Abnormal Bleeding Discharge Attestations [employer] Time Spent in Discharge Care*: less than 30 min Coding Level of Care Code Acute Code for Chg Fwd Diagnoses IUFD at less than 20 weeks of gestation O02.1
--- OUTSIDE RECORDS SUMMARY | 2025-03-16 07:00 | XMS_ITS | Data Portability ---
Author Organization STEVE Cayetano [facility] Nora Tafoya [facility]ENTER[facility] Address [address] [address] Assessment No assessment recorded. Plan of Treatment Reminders Order Date Submit Date Provider Last Modified By Organization Details Last Modified Time Details Appointments None recorded. Lab HIV 1+2 Ab + HIV1 p24 Ag, quantitativ e immunoassay , serum 2022 023 [employer] [address] [address], [address], [place], [address], 05:06:16 urinalysis, complete 2022 023 [employer] [address] [address], [address], [place], [address], 05:06:13 hepatitis C Ab, serum 2022 023 [employer] [address] [address], [address], [place], [address], 16:55:30 chlamydia + gonorrhea DNA panel, unspecified specimen 2022 023 [employer] [address] [address], [address], [place], [address], 16:55:37 trichomonas vaginalis DNA, PCR, unspecified specimen 2022 023 [employer] [address], [address], [place], [address], 3 16:55:35 drug test, urine 2022 023 [email or web address] [facility], [address] [place] [address], [address], [place], [address], 4 08:39:21 ABO group, blood 2022 023 [email or web address] [facility], [address] [place] [address], [address], [place], [address], 4 08:39:21 ABO group + Rh type, blood (donor) 2022 023 [id number] [facility], [address] [place] [address], [address], [place], [address], 4 08:39:21 blood group antibody investigati on, plasma or RBC 2022 023 [id number] [facility], [address] [place] [address], [address], [place], [address], 4 08:39:21 HBsAg (hepatitis B surface Ag), serum 2022 023 [employer] [facility], [address] [place] [address], [address], [place], [address], 3 05:06:15 syphilis Ab, igg 2022 023 [email or web address] [facility], [address] [place] [address], [address], [place], [address], 4 08:39:21 rubella Ab, serum 2022 023 [employer] [facility], [address] [place] [address], [address], [place], [address], 4 08:39:21 CBC w/ auto diff 2022 023 [employer], [address] [place] [address], [address], [place], [address], 3 05:06:14 culture (colony count), urine 2022 023 [email or web address] [employer] [facility], [address] [facility] [address], [address], [place], [address], 4 08:39:21 jhon wet prep 2022 023 [facility] ([facility]), [address] [place] [address], [address], 3 17:36:41 pap, LB 2022 023 [employer] [facility], [address] [place] [address], [address], [place], [address], 3 11:58:13 Referral None recorded. Procedures None recorded. Surgeries None recorded. Imaging US, obstetric, 2nd trimester - in 5 weeks 2022 023 [email or web address] [facility] ([facility]), [address] [place] [address], [address], 3 12:00:40 US, obstetric, 1st trimester - [id number] 2022 023 [email or web address] [facility] ([facility]), [address] [place] [address], [address], 3 10:45:39 Medication Orders None recorded. Patient TargetsNo targets recorded. Patient InstructionsNo instructions recorded. Reason for Referral None Reported. Results Created Date Observation Date Name Description Value Unit Range Abnormal Flag Note LastModifiedBy Organization Detail LastModifiedTime 03/08/2003/10/2023 URINA LYSIS , COMPL ETE color YELLOW yellow normal Not Available [address], [address], 03/10/2023 05:04:21 03/08/20 23 03/10/2023 URINA LYSIS , COMPL ETE appearance CLEAR clear normal Not Available [address], [address], 03/10/2023 05:04:21 03/08/20 23 03/10/2023 URINA LYSIS , COMPL ETE specific gravity 1.017 1.001- 1.035 normal Not Available [address], [address], 03/10/2023 05:04:21 03/08/20 23 03/10/2023 URINA LYSIS , COMPL ETE pH 7.0 5.0-8. 0 normal Not Available [address], [address], 03/10/2023 05:04:21 03/08/20 23 03/10/2023 URINA LYSIS , COMPL ETE glucose NEGATI VE negati ve normal Not Available [address], [address], 03/10/2023 05:04:21 03/08/20 23 03/10/2023 URINA LYSIS , COMPL ETE bilirubin NEGATI VE negati ve normal Not Available [address], [address], 03/10/2023 05:04:21 03/08/20 23 03/10/2023 URINA LYSIS , COMPL ETE ketones NEGATI VE negati ve normal Not Available [address], [address], 03/10/2023 05:04:21 03/08/20 23 03/10/2023 URINA LYSIS , COMPL ETE occult blood NEGATI VE negati ve normal Not Available [address], [address], 03/10/2023 05:04:21 03/08/20 23 03/10/2023 URINA LYSIS , COMPL ETE protein NEGATI VE negati ve normal Not Available [address], [address], 03/10/2023 05:04:21 03/08/20 23 03/10/2023 URINA LYSIS , COMPL ETE nitrite NEGATI VE negati ve normal Not Available [address], [address], 03/10/2023 05:04:21 03/08/20 23 03/10/2023 URINA LYSIS , COMPL ETE leukocyte esterase 1+ negati ve abnormal Not Available [address], [address], 03/10/2023 05:04:21 03/08/20 23 03/10/2023 URINA LYSIS , COMPL ETE WBC NONE SEEN /hpf < or = 5 normal Not Available [address], [address], 03/10/2023 05:04:21 03/08/20 23 03/10/2023 URINA LYSIS , COMPL ETE RBC NONE SEEN /hpf < or = 2 normal Not Available [address], [address], 03/10/2023 05:04:21 03/08/20 23 03/10/2023 URINA LYSIS , COMPL ETE squamous epithelial cells 0-5 /hpf < or = 5 Not Available [address], [address], 03/10/2023 05:04:21 03/08/20 23 03/10/2023 URINA LYSIS , COMPL ETE bacteria NONE SEEN /hpf none seen normal Not Available [facility] [address] [address], [place], [address], 03/10/2023 05:04:21 03/08/20 23 03/10/2023 URINA LYSIS , COMPL ETE hyaline cast NONE SEEN /lpf none seen normal Not Available [address], [address], 03/10/2023 05:04:21 03/08/20 23 03/09/2023 CBC (INCL UDES DIFF/ PLT) white blood cell count 6.9 thous and/u L 3.8-10 .8 normal Not Available [address], [address], 03/09/2023 05:06:14 03/08/20 23 03/09/2023 CBC (INCL UDES DIFF/ PLT) red blood cell count 4.02 trish on/uL 3.80-5 .10 normal Not Available [address], [address], 03/09/2023 05:06:14 03/08/20 23 03/09/2023 CBC (INCL UDES DIFF/ PLT) hemoglobin 12.4 g/dL 11.7-1 5.5 normal Not Available [address], [address], 03/09/2023 05:06:14 03/08/20 23 03/09/2023 CBC (INCL UDES DIFF/ PLT) hematocrit 36.5 % 35.0-4 5.0 normal Not Available [address], [address], 03/09/2023 05:06:14 03/08/20 23 03/09/2023 CBC (INCL UDES DIFF/ PLT) MCV 90.8 fL 80.0-1 00.0 normal Not Available [address], [address], 03/09/2023 05:06:14 03/08/20 23 03/09/2023 CBC (INCL UDES DIFF/ PLT) MCH 30.8 pg 27.0-3 3.0 normal Not Available [address], [address], 03/09/2023 05:06:14 03/08/2003/09/2023 CBC (INCL UDES DIFF/ PLT) MCHC 34.0 g/dL 32.0-3 6.0 normal Not Available [address], [address], 03/09/2023 05:06:14 03/08/2003/09/2023 CBC (INCL UDES DIFF/ PLT) RDW 12.4 % 11.0-1 5.0 normal Not Available [address], [address], 03/09/2023 05:06:14 03/08/2003/09/2023 CBC (INCL UDES DIFF/ PLT) platelet count 229 thous and/u L 140-40 0 normal Not Available [address], [address], 03/09/2023 05:06:14 03/08/2003/09/2023 CBC (INCL UDES DIFF/ PLT) MPV 11.3 fL 7.5-12 .5 normal Not Available [address], [address], 03/09/2023 05:06:14 03/08/2003/09/2023 CBC (INCL UDES DIFF/ PLT) absolute neutrophils 4940 cells /uL 1500-7 800 normal Not Available [address], [address], 03/09/2023 05:06:14 03/08/2003/09/2023 CBC (INCL UDES DIFF/ PLT) absolute lymphocytes 1463 cells /uL 850-39 00 normal Not Available [address], [address], 03/09/2023 05:06:14 03/08/20 23 03/09/2023 CBC (INCL UDES DIFF/ PLT) absolute monocytes 449 cells /uL 200-95 0 normal Not Available [address], [address], 03/09/2023 05:06:14 03/08/2003/09/2023 CBC (INCL UDES DIFF/ PLT) absolute eosinophils 28 cells /uL 15-500 normal Not Available [address], [address], 03/09/2023 05:06:14 03/08/2003/09/2023 CBC (INCL UDES DIFF/ PLT) absolute basophils 21 cells /uL 0-200 normal Not Available [address], [address], 03/09/2023 05:06:14 03/08/2003/09/2023 CBC (INCL UDES DIFF/ PLT) neutrophils 71.6 % normal Not Available [address], [address], 03/09/2023 05:06:14 03/08/2003/09/2023 CBC (INCL UDES DIFF/ PLT) lymphocytes 21.2 % normal Not Available [address], [address], 03/09/2023 05:06:14 03/08/2003/09/2023 CBC (INCL UDES DIFF/ PLT) monocytes 6.5 % normal Not Available [address], [address], 03/09/2023 05:06:14 03/08/20 23 03/09/2023 CBC (INCL UDES DIFF/ PLT) eosinophils 0.4 % normal Not Available [facility] [address] [address] [place], [address], 03/09/2023 05:06:14 03/08/20 23 03/09/2023 CBC (INCL UDES DIFF/ PLT) basophils 0.3 % normal Not Available [facility] [address] [address] [place], [address], 03/09/2023 05:06:14 03/08/20 23 03/10/2023 HEPAT ITIS B SURFA CE ANTIG EN W/REF L CONFI RM hepatitis B surface antigen NON-RE ACTIVE non-re active normal For addit ional johannar grupo garcia, chitra e refer to http: //[facility] negar garcia.que stdia gnost ics.c om/fa q/FAQ 202 (This link is being provi ded for infor matio nal/ educa imer l purpo ses only. ) Not Available [facility] [address], [address], 03/10/2023 05:21:59 03/08/2003/10/2023 HEPAT ITIS C AB W/REF L TO HCV RNA, QN, PCR hepatitis C antibody NON-RE ACTIVE non-re active normal HCV antib niraj was non-r eacti ve. There is no labor atory evide nce of HCV infec tion. In most cases , no furth er actio n is requi red. Howev er, if recen t HCV expos ure is suspe cted, a test for HCV RNA (test code 02223 ) is sugge sted. For addit ional johannar grupo garcia pleas e refer to http: //[facility] garcia.que stdia gnost ics.c om/fa q/FAQ 22v1 (This link is being provi ded for infor matio nal/ educa imer l purpo ses only. ) Not Available [facility] [address] [address] [place], [address], 03/10/2023 06:09:39 03/08/20 23 03/10/2023 RUBEL LA AB (IGG) , IMMUN E STATU S rubella Ab (IgG), immune status 0.91 index low Index Inter preta tion ----- ----- ----- ---- <0.90 Not consi stent with immun ity 0.90- 0.99 Equiv ocal > or = 1.00 Consi stent with immun ity The prese nce of rubel la IgG antib niraj sugge sts immun izati on or past or curre nt infec tion with rubel la virus . Not Available [facility] [address] [address], [place], [address], 03/10/2023 13:16:25 03/08/2003/10/2023 HIV 1/2 ANTIG EN/AN TIBOD Y,FOU RTH GENER ATION W/RFL HIV Ag/Ab, 4TH gen NON-RE ACTIVE non-re active normal HIV-1 antig en and HIV-1 /HIV- 2 antib odies were not detec mitchell. There is no labor atory evide nce of HIV infec tion. PLEAS E NOTE: This infor matio n has been discl osed to you from recor ds whose confi denti ality may be prote cted by state law. If your state requi res such prote ction , then the state law prohi bits you from lobito salinas any furth er discl osure of the infor matio n witho ut the speci fic writt en conse nt of the perso n to whom it perta ins, or as other sanon permi tted by law. A gener al autho rizat ion for the relea se of medic al or other infor matio n is NOT suffi cient for this purpo se. For addit ional infor matio n pleas e refer to http: //[facility] stdia gnost ics.c om/fa q/FAQ 106 (This link is being provi ded for infor matio nal/ educa imer l purpo ses only. ) The perfo rmanc e of this assay has not been clini bradley valid ated in patie nts less than 2 years old. Not Available [address] [place], [address], 03/10/2023 05:51:09 03/08/20 23 03/10/2023 RPR (DX) W/REF L TITER AND T. PALLI DUM AB, IA RPR (DX) w/refl titer and confirmatory testing NON-RE ACTIVE non-re active normal No labor atory evide nce of syphi lis. If recen t expos ure is suspe cted, submi t a new sampl e in 2-4 weeks . Not Available [facility] [address] [place], [address], 03/10/2023 12:32:22 03/08/20 23 03/09/2023 ANTIB NIRAJ SCREE N, RBC W/REF L ID, TITER AND AG antibody screen, RBC w/refl id, titer and Ag NO ANTIBO DIES DETECT ED normal Refer ence range No antib odies detec mitchell This assay is a scree yahaira test for the detec tion of red blood cell antib odies . The test is not to be used for pretr ansfu mukesh scree yahaira or for the medic al manag ement of an alloi mmuni zed pregn gloria. Not Available [address] [place], [address], 03/09/2023 15:41:11 03/08/20 23 03/09/2023 ABO GROUP AND RH TYPE ABO group A Not Available [facility] [address] [address] [place], [address], 03/09/2023 15:41:12 03/08/20 23 03/09/2023 ABO GROUP AND RH TYPE Rh type RH(D) POSITI VE For addit ional infor chitra rae e refer to http: //[facility] negar riversQue stDia gnost ics.c om/fa q/FAQ 111 (This link is being provi ded for infor grupo knowles/ educa imer l purpo ses only. ) Not Available [address] [address] [address], [place], [address], 03/09/2023 15:41:12 03/08/20 23 03/10/2023 DRUG MONIT OR, PANEL 1, SCREE N, URINE amphetamines NEGATI VE NG/mL <500 See Note A See Note A Not Available [address] [address] [address], [place], [address], 03/10/2023 23:29:50 03/08/20 23 03/10/2023 DRUG MONIT OR, PANEL 1, SCREE N, URINE barbiturates NEGATI VE NG/mL <300 See Note A See Note A Not Available [employer] [address] [address] [address], [place], [address], 03/10/2023 23:29:50 03/08/20 23 03/10/2023 DRUG MONIT OR, PANEL 1, SCREE N, URINE benzodiazepi becca NEGATI VE NG/mL <100 See Note A See Note A Not Available [address] [address] [address], [place], [address], 03/10/2023 23:29:50 03/08/20 23 03/10/2023 DRUG MONIT OR, PANEL 1, SCREE N, URINE cocaine metabolite NEGATI VE NG/mL <150 See Note A See Note A Not Available [employer] [address] [address] [address], [place], [address], 03/10/2023 23:29:50 03/08/20 23 03/10/2023 DRUG MONIT OR, PANEL 1, SCREE N, URINE marijuana metabolite NEGATI VE NG/mL <20 See Note A See Note A Not Available [employer] [address] [address] [address], [place], [address], 03/10/2023 23:29:50 03/08/20 23 03/10/2023 DRUG MONIT OR, PANEL 1, SCREE N, URINE methadone metabolite NEGATI VE NG/mL <100 See Note A See Note A Not Available [address] [address] [address], [place], [address], 03/10/2023 23:29:50 03/08/20 23 03/10/2023 DRUG MONIT OR, PANEL 1, SCREE N, URINE opiates NEGATI VE NG/mL <100 See Note A See Note A Not Available [address] [address] [address], [place], [address], 03/10/2023 23:29:50 03/08/20 23 03/10/2023 DRUG MONIT OR, PANEL 1, SCREE N, URINE oxycodone NEGATI VE NG/mL <100 See Note A See Note A Not Available [address] [address] [address], [place], [address], 03/10/2023 23:29:50 03/08/20 23 03/10/2023 DRUG MONIT OR, PANEL 1, SCREE N, URINE phencyclidin e NEGATI VE NG/mL <25 See Note A See Note A Not Available [address] [address] [address], [place], [address], 03/10/2023 23:29:50 03/08/20 23 03/10/2023 DRUG MONIT OR, PANEL 1, SCREE N, URINE creatinine 61.3 mg/dL > or = 20.0 Not Available [address] [address] [address], [place], [address], 03/10/2023 23:29:50 03/08/20 23 03/10/2023 DRUG MONIT OR, PANEL 1, SCREE N, URINE pH 7.6 4.5-9. 0 Not Available [address] [address] [address], [place], [address], 03/10/2023 23:29:50 03/08/20 23 03/10/2023 DRUG MONIT OR, PANEL 1, SCREE N, URINE oxidant NEGATI VE mcg/m L <200 Not Available [address] [address] [address], [place], [address], 03/10/2023 23:29:50 03/08/20 23 03/10/2023 DRUG MONIT ORING TEMPL ATE notes and comments This drug testi ng is for medic al treat ment only. Maritza sis was perfo rmed as non-f orens ic testi ng and these resul ts shoul d be used only by healt hcare provi ders to rende r diagn osis or treat ment, or to monit or progr ess of medic al condi tions . Note A: The resul ts are presu mptiv e; based only on scree yahaira dempseyo ds, and they have not been confi rmed by a defin itive metho d. Healt hcare Provi ders needi ng Inter preta tion ozzy tance , pleas e conta ct us at 1.877 .40.R XTOX (1.87 7.407 .9869 ) M-F, 8am to 10pm EST Not Available [address] [address] [place], [address], 03/10/2023 23:29:53 03/08/20 23 03/09/2023 CULTU RE, URINE , ROUTI NE culture SEE NOTE Not Available [address] [address] [place], [address], 03/09/2023 05:06:19 03/08/20 23 03/10/2023 CULTU RE, URINE , ROUTI NE culture, urine, routine SEE NOTE CULTU RE, URINE , ROUTI NE Micro Numbe r: [id number] Test Statu s: Final Speci men Sourc e: Urine , clean catch Speci men Quali ty: Adequ ate Resul t: Mixed genit al baljinder isola mitchell. These super ficia l bacte nishant are not indic ative of a urina ry tract infec tion. No furth er organ ism ident ifica tion is warra nted on this speci men. If clini bradley indic ated, recol lect clean -catc h, mid-s tream urine and trans kellie immed iatel y to Urine Cultu re Trans port Tube. Not Available [facility] [address] [address] [place], [address], 03/10/2023 21:36:49 03/08/2003/08/2023 jhon wet prep Whiff negati ve Not Available [facility] ([facility]) [address] [place], [address], 03/08/2023 08:20:27 03/08/20 23 03/08/2023 jhon wet prep Epi 10-15 Not Available [facility] ([facility]) [address] [place], [address], 03/08/2023 08:20:27 03/08/20 23 03/08/2023 jhon wet prep WBC 2-3 Not Available [facility] ([facility]) [address] [place], [address], 03/08/2023 08:20:27 03/08/20 23 03/08/2023 jhon wet prep RBC 2-3 Not Available [facility] ([facility]) [address] [place], [address], 03/08/2023 08:20:27 03/08/20 23 03/08/2023 jhon wet prep Bacteria 1+ small rods Not Available [facility] ([facility]) [address] [place], [address], 03/08/2023 08:20:27 03/08/20 23 03/08/2023 jhon wet prep Fungus non seen Not Available [facility] ([facility]) [address] [place], [address], 03/08/2023 08:20:27 03/08/20 23 03/08/2023 jhon wet prep Clue Cells negati ve Not Available [facility] ([facility]) [address] [place], [address], 03/08/2023 08:20:27 03/08/20 23 03/08/2023 jhon wet prep Other neg Not Available [facility] ([facility]) [address] [place], [address], 03/08/2023 08:20:27 03/09/20 23 03/11/2023 IMAGE -GUID ED PAP W/AGE BASED SCR,W /CT/N G/TRI CH comment Not Available [address] [address] [place], [address], 03/11/2023 11:58:12 03/09/2003/11/2023 IMAGE -GUID ED PAP W/AGE BASED SCR,W /CT/N G/TRI CH report status: Not Available [address] [address] [place], [address], 03/11/2023 11:58:12 03/09/20 23 03/11/2023 IMAGE -GUID ED PAP W/AGE BASED SCR,W /CT/N G/TRI CH clinical information: Not Available [address] [address] [place], [address], 03/11/2023 11:58:12 03/09/20 23 03/11/2023 IMAGE -GUID ED PAP W/AGE BASED SCR,W /CT/N G/TRI CH LMP: Not Available [address] [address] [place], [address], 03/11/2023 11:58:12 03/09/20 23 03/11/2023 IMAGE -GUID ED PAP W/AGE BASED SCR,W /CT/N G/TRI CH prev. Pap: Not Available [address], [address], 03/11/2023 11:58:12 03/09/20 23 03/11/2023 IMAGE -GUID ED PAP W/AGE BASED SCR,W /CT/N G/TRI CH prev. BX: Not Available [address] [address] [address], [place], [address], 03/11/2023 11:58:12 03/09/2003/11/2023 IMAGE -GUID ED PAP W/AGE BASED SCR,W /CT/N G/TRI CH source: Not Available [address] [address], [place], [address], 03/11/2023 11:58:12 03/09/2003/11/2023 IMAGE -GUID ED PAP W/AGE BASED SCR,W /CT/N G/TRI CH statement of adequacy: Not Available [address] [address], [place], [address], 03/11/2023 11:58:12 03/09/20 23 03/11/2023 IMAGE -GUID ED PAP W/AGE BASED SCR,W /CT/N G/TRI CH general categorizati on: Not Available [address] [address], [place], [address], 03/11/2023 11:58:12 03/09/2003/11/2023 IMAGE -GUID ED PAP W/AGE BASED SCR,W /CT/N G/TRI CH interpretati on/result: Not Available [address] [address] [address], [place], [address], 03/11/2023 11:58:12 03/09/2003/11/2023 IMAGE -GUID ED PAP W/AGE BASED SCR,W /CT/N G/TRI CH infection: Not Available [address], [place], [address], 03/11/2023 11:58:12 03/09/20 23 03/11/2023 IMAGE -GUID ED PAP W/AGE BASED SCR,W /CT/N G/TRI CH comment: Not Available [address], [place], [address], 03/11/2023 11:58:12 03/09/20 23 03/11/2023 IMAGE -GUID ED PAP W/AGE BASED SCR,W /CT/N G/TRI CH cytotechnolo gist: Not Available [address] [address] [place], [address], 03/11/2023 11:58:12 03/09/20 23 03/11/2023 IMAGE -GUID ED PAP W/AGE BASED SCR,W /CT/N G/TRI CH review cytotechnolo gist: Not Available [address] [address], [place], [address], 03/11/2023 11:58:12 03/09/20 23 03/11/2023 IMAGE -GUID ED PAP W/AGE BASED SCR,W /CT/N G/TRI CH pathologist: Not Available [address] [address] [place], [address], 03/11/2023 11:58:12 03/09/20 23 03/11/2023 IMAGE -GUID ED PAP W/AGE BASED SCR,W /CT/N G/TRI CH HPV MRNA E6/E7 Not Available [address], [place], [address], 03/11/2023 11:58:12 03/09/20 23 03/11/2023 IMAGE -GUID ED PAP W/AGE BASED SCR,W /CT/N G/TRI CH chlamydia trachomatis RNA, tma, urogenital NOT DETECT ED not detect ed normal Not Available [address] [address], [place], [address], 03/11/2023 11:58:12 03/09/20 23 03/11/2023 IMAGE -GUID ED PAP W/AGE BASED SCR,W /CT/N G/TRI CH neisseria gonorrhoeae RNA, tma, urogenital NOT DETECT ED not detect ed normal Not Available [address] [address] [place], [address], 03/11/2023 11:58:12 03/09/20 23 03/11/2023 IMAGE -GUID ED PAP W/AGE BASED SCR,W /CT/N G/TRI CH comment The maritza tical perfo rmanc e archie cteri stics of this assay , when used to test SureP ath(T M) speci mens have been deter mined by [facility]. The modif icati ons have not been clear ed or appro kayla by the FDA. This assay has been valid ated pursu ant to the CLIA regul ation s and is used for clini nydia purpo ses. For addit ional infor chitra rae e refer to https ://ed ucati on.qu [employer]. [employer]/f aq/FA Q154 (This link is being provi ded for infor grupo n/ educa imer l purpo ses only. ) Not Available [facility] [address] [address] [place], [address], 03/11/2023 11:58:12 03/09/2003/11/2023 IMAGE -GUID ED PAP W/AGE BASED SCR,W /CT/N G/TRI CH trichomonas vaginalis, ql tma, Pap vial NOT DETECT ED not detect ed normal The maritza tical perfo rmanc e archie cteri stics of this assay have been deter mined by [employer] [facility]. The modif icati ons have not been clear ed or appro kayla by the FDA. This assay has been valid ated pursu ant to the CLIA regul ation s and is used for clini nydia purpo ses. For addit ional infor chitra rae e refer to http: //edu negar smithia gnost ics.c om/ faq/T kota crowell tma (This link is being provi ded for infor grupo n/ educa imer l purpo ses only. ) Not Available [facility] [address] [place], [address], 03/11/2023 11:58:12 03/09/20 23 03/13/2023 IMAGE -GUID ED PAP W/AGE BASED SCR,W /CT/N G/TRI CH comment This order for age-b ased cervi nydia cance r and STI scree yahaira follo ws ACOG guide lines (PB 168, 140, FAQ07 1). See indiv idual assay s for perfo rming site locat ion. Not Available [address] [address] [place], [address], 03/13/2023 10:15:07 03/09/20 23 03/13/2023 IMAGE -GUID ED PAP W/AGE BASED SCR,W /CT/N G/TRI CH clinical information: normal Azul l exam Not Available [address] [address] [address] , [place], [address], 03/13/2023 10:15:07 03/09/20 23 03/13/2023 IMAGE -GUID ED PAP W/AGE BASED SCR,W /CT/N G/TRI CH LMP: normal NONE GIVEN Not Available [facility] [place] [address] [address], [place], [address], 03/13/2023 10:15:07 03/09/20 23 03/13/2023 IMAGE -GUID ED PAP W/AGE BASED SCR,W /CT/N G/TRI CH prev. Pap: normal NONE GIVEN Not Available [address] [address] [place], [address], 03/13/2023 10:15:07 03/09/20 23 03/13/2023 IMAGE -GUID ED PAP W/AGE BASED SCR,W /CT/N G/TRI CH prev. BX: normal NONE GIVEN Not Available [facility] [address] [address] [place], [address], 03/13/2023 10:15:07 03/09/20 23 03/13/2023 IMAGE -GUID ED PAP W/AGE BASED SCR,W /CT/N G/TRI CH source: normal Cervi x, Endoc ervix Not Available [facility] [place] [address] [address] [place], [address], 03/13/2023 10:15:07 03/09/20 23 03/13/2023 IMAGE -GUID ED PAP W/AGE BASED SCR,W /CT/N G/TRI CH statement of adequacy: Speci men proce ssed and exami jocelyn, but unsat isfac tory for evalu ation due to an insuf ficie nt numbe r of squam ous cells . Not Available [facility] [address] [address] [place], [address], 03/13/2023 10:15:07 03/09/20 23 03/13/2023 IMAGE -GUID ED PAP W/AGE BASED SCR,W /CT/N G/TRI CH interpretati on/result: Cytol ogy Resul ts: Unabl e to provi de inter preta tion due to unsat isfac tory speci men adequ acy. Not Available [facility] [place] [address] [address] [place], [address], 03/13/2023 10:15:07 03/09/2003/13/2023 IMAGE -GUID ED PAP W/AGE BASED SCR,W /CT/N G/TRI CH comment: normal This case could not be evalu ated with compu ter [employer] . The slide was manua lly scree jocelyn accor ding to routi ne proce dures . Micro scopi c featu res prese nt sugge stive of an inter ferin g subst ance, inclu ding cellu lar debri s, mucus , or possi ble lubri cant (stacey ent or provi josef use). Use of lubri cant is not recom nunu d. Not Available [facility] [address] [address] [place], [address], 03/13/2023 10:15:07 03/09/20 23 03/13/2023 IMAGE -GUID ED PAP W/AGE BASED SCR,W /CT/N G/TRI CH cytotechnolo gist: normal TLS, CT( CP) CT Scree yahaira Locat ion: [facility] [place] [address] [facility] [address] Not Available [facility] - [place] [address] [address] [place], [address], 03/13/2023 10:15:07 03/09/20 23 03/13/2023 IMAGE -GUID ED PAP W/AGE BASED SCR,W /CT/N G/TRI CH review cytotechnolo gist: normal MARY, CT( CP) CT scree yahaira locat ion: [facility] [place] [address] [place] [address] Not Available [facility] [address] [address] [place], [address], 03/13/2023 10:15:07 03/09/20 23 03/13/2023 IMAGE -GUID ED PAP W/AGE BASED SCR,W /CT/N G/TRI CH comment EXPLA NATOR Y NOTE: The Pap is a scree yahaira test for cervi nydia cance r. It is not a diagn ostic test and is subje ct to false negat arielle and false posit arielle resul ts. It is most relia ble when a satis facto ry sampl e, regul kizzy obtai jocelyn, is submi tted with relev ant clini nydia findi ngs and histo ry, and when the Pap resul t is evalu ated along with histo juana and curre nt clini nydia infor matio n. Not Available [facility] [place] [address] [address], [place], [address], 03/13/2023 10:15:07 03/09/20 23 03/13/2023 IMAGE -GUID ED PAP W/AGE BASED SCR,W /CT/N G/TRI CH HPV MRNA E6/E7 NOT DETECT ED not detect ed normal Metho dolog y: Trans cript ion-M ediat ed Ampli ficat ion This assay detec ts E6/E7 viral messe nger RNA (mRNA ) from 14 high- risk HPV types (16,1 8,31, 33,35 ,39,4 5,51, 52,56 ,58,5 9,66, 68). Cervi nydia sourc es are requi red for HPV testi ng. If a vagin al sourc e from a patie nt who has had a total hyste recto my with remov al of cervi x was submi tted, pleas e conta ct the testi ng labor atory for alter nativ e testi ng optio ns. For addit ional infor chitra rae e refer to http: //[facility] catamaury garcia.que stdia gnost ics.c om/fa q/FAQ 129v1 (This link if provi ded for infor grupo garcia/ educa imer l purpo ses only. ) Not Available [facility] [place] [address] [address] [place], [address], 03/13/2023 10:15:07 03/09/20 23 03/13/2023 IMAGE -GUID ED PAP W/AGE BASED SCR,W /CT/N G/TRI CH chlamydia trachomatis RNA, tma, urogenital NOT DETECT ED not detect ed normal Not Available [facility] [place] [address] [address] [place], [address], 03/13/2023 10:15:07 03/09/20 23 03/13/2023 IMAGE -GUID ED PAP W/AGE BASED SCR,W /CT/N G/TRI CH neisseria gonorrhoeae RNA, tma, urogenital NOT DETECT ED not detect ed normal Not Available [facility] [place] [address] [address] [place], [address], 03/13/2023 10:15:07 03/09/20 23 03/13/2023 IMAGE -GUID ED PAP W/AGE BASED SCR,W /CT/N G/TRI CH comment The maritza tical perfo rmanc e archie cteri stics of this assay , when used to test SureP ath(T M) speci mens have been deter mined by [facility]. The modif icati ons have not been clear ed or appro kayla by the FDA. This assay has been valid ated pursu ant to the CLIA regul ation s and is used for clini nydia purpo ses. For addit ional infor chitra rae e refer to https ://ed ucati on.qu estdi marylouos [employer]™ [employer]. com/f aq/FA Q154 (This link is being provi ded for infor grupo garcia/ educa imer l purpo ses only. ) Not Available [facility] [address] [place], [address], 03/13/2023 10:15:07 03/09/2003/13/2023 IMAGE -GUID ED PAP W/AGE BASED SCR,W /CT/N G/TRI CH trichomonas vaginalis, ql tma, Pap vial NOT DETECT ED not detect ed normal The maritza tical perfo rmanc e archie cteri stics of this assay have been deter mined by [employer] [facility] [facility]. The modif icati ons have not been clear ed or appro kayla by the FDA. This assay has been valid ated pursu ant to the CLIA regul ation s and is used for clini nydia purpo ses. For addit ional chitra leyva refer to http: //[facility] negar garcia.al stdia gnost ics.c om/ faq/T kota monas tma (This link is being provi ded for infor grupo garcia/ odiliaa imer l purpo ses only. ) Not Available [facility] [address] [address] , [place], [address], 03/13/2023 10:15:07 Result Notes None recorded. Problems Name Problem SNOMED Code Status Onset Date Resolution Date Notes Provider Name and Address Organization Details Recorded Time 93437495 Active 023 DILLON PRINCE azeb [facility] 3 15:17:28 Problem Notes None recorded. Procedures Surgical History Date Name Laterality Status Provider Name and Address Organization Details Recorded Time 03/08/2023 Date of Last Pap Smear completed TREVA HUAH ISAAC [facility] 03/08/2023 16:38:46 Imaging Results None recorded. Procedure Notes None recorded. Medical Equipment None Reported. 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 MACHINE TENDER, Offic e Visit ; Cedric medrano; Stan alvarado ce: *; Reaso n: Drug aller gy; ; Not Available [facility] 3 02:25:21 Medications Name Sig Start Date Stop Date Status Note LastModified by Organization Details LastModified Time Nordette -21 0.15 mg-0.03 mg tablet daily 2022 completed 0; Recorded 0 3:14PM by Maris Ireland RN, Office Visit; Not Available Not Available Not Available Vitals Date Recorded Body weight Provider Name an d Address Organization Details Last Updated DateTime 02/07/2023 39966.15131 g Ana Wilder MD [address] [place] [address], [phone] 02/07/2023 15:41:23 Date Recorded Body height Body mass index (BMI) Body temperature Oxygen saturation Heart rate Systolic And Diastolic Provider Name and Address Organization Details Last Updated DateTime 3 167.64 cm 26.5 kg/m2 98 [degF] 97 % 67 /min 128/78 mm[Hg] DILLON PRINCE [facility] 3 15:13:07 Date Recorded Body weight Provider Name an d Address Organization Details Last Updated DateTime 03/08/2023 53256.41458 rita Wilder MD [address] [place] [address], [phone] 03/08/2023 16:52:20 Date Recorded Body height Body mass index (BMI) Body temperature Oxygen saturation Heart rate Systolic And Diastolic Provider Name and Address Organization Details Last Updated DateTime 3 167.64 cm 27 kg/m2 97.5 [degF] 99 % 113 /min 125/70 mm[Hg] TREVA GRAY [facility] 16:37:32 Social History None recorded. Functional Status Question Answer Note LastModified by Organizat ion Details LastModified Time Do you use any illicit or recreational drugs? No [email or web address] Information not available 02/07/2023 What is your level of alcohol consumption? None [email or web address] Information not available 02/07/2023 Mental Status None recorded. Family History Relationship Description Onset Age of this Age Resolved Age Notes LastModified by Organization Details LastModified Time Maternal Grandmother Hypertensive disorder [email or web address] Not available 02/24 16:39:12 Mother Pre-eclampsi a Not available 02/24 16:39:22 Medical History Condition Response Coronary Artery Disease N Other N Gout N Kidney Stones N Blood Diseases N Hyperthyroidism N Breast Cancer N Blood Transfusion N Depression N COPD N Lung Disease N Hypothyroidism N Developmental or Behavioral Disorders N Defects or Inherited Disease N Breast Problem N Difficulty Swallowing N Anesthesia Complications N Meniere's disease N Anxiety Disorder N Muscle, Joint, or Bone Problems N Vision or Eye Problems N Arthritis N Polyps N Infertility N Cancer N Varicosities N Stroke N Endometriosis N Bladder or Kidney Problems N High Cholesterol N Liver Disease N Headaches N Fibromyalgia N Kidney Disease N Allergies/Hayfever N Heart Problems N Ear or Hearing Problems N Hospitalizations N Thyroid Problems N GI Problems N ADD/ADHD N Skin Problems N Eating Disorder N Anemia N Constipation N Mental Illness N Ovarian Cancer N Diabetes N Bedwetting N Seizures/Epilepsy N Tuberculosis N Eczema N Diverticulitis N Abuse/Domestic Violence N Asthma N Reflux/GERD N Hepatitis N Heart Disease N Pulmonary Embolism N Pre-Eclampsia N Hypertension N Chronic Ear Infections N Osteoporosis N Chicken Pox N Autism Spectrum Disorder (ASD) N Thrombophilias N Gynecological History Statement/Question Response Date of Last Pap Smear 03/08/2023 Date of LMP 11/23/2022 LMP Definite Obstetrics History GPAL:G 3 P 1 0 1 1 Type Value Full Term 1 Spontaneous 1 Living 1 Total 3 Past Encounters Encounter ID Performer Location Encounter Start Date Encounter Closed Date Diagnosis/Indication Diagnosis SNOMED-CT Code Diagnosis ICD10 Code Diagnosis IMO Codes Diagnosis Note [id number] Ana Wilder MD [facility] ([facility]) [address] [place] [address] 02/07/2023 15:04:18 02/07/2023 16:03:58 Gestation period, 10 weeks 94716944 Z3A.10 Normal pre gnancy in multigravida [id number] 48115 Z34.81 [id number] Ana Wilder MD [facility] ([facility]) [address] [place] [address] 02/15/2023 11:45:25 02/15/2023 14:38:31 [id number] Ana Wilder MD [facility] ([facility]) [address] [place] [address] 03/08/2023 16:23:52 03/08/2023 17:51:05 Gestation period, 15 weeks 6096007 Z3A.15 Normal pre gnancy in multigravida 6120412798 23133 Z34.81 99291331 Z33.1 Health Concerns Section Related Observation LastModified by Organization Detai ls LastModified Time None Recorded Concern Status LastModified by Organization Details LastModified Time None Recorded Advance Directives Directive None Recorded Payers Insurance Date Sequence Insurance Name Policy Number Policy Chamberlain Covered Member ID Chamberlain Member ID Guarantor Name 04/07/2023 1 [facility] [id number] Mary Ellen Lindsay [id number] Mary Ellen Lindsay Notes Date Note Type Note Provider Name and Address Organization Details Recorded Time 02/08/20 23 text/htm acacia jr ob routineReported by PatientHPIFor associated symptoms, patient reportsno abdominal pain,no cramping,no bleeding,no dysuria,no frequency,no fever,no nausea,no emesis,no constipation, andno headache.ROS as noted in the HPI Ana Wilder MD [address] [place] [address], [phone], [facility] 02/07/2023 15:47:25 03/08/20 23 text/htm l jr ob routineReported by PatientHPIFor associated symptoms, patient reportsvaginal dischargeandconstipationbut reportsno abdominal pain,no cramping,no contractions,no bleeding,no dysuria,no nausea,no emesis,no edema,no headache, andno dizziness.ROS as noted in the HPI Ana Wilder MD [address] [place], [address], [facility], [facility] 03/27/2023 11:29:19 OBGyn Episode Ob Episode Information Episode Created Date Number of Fetuses Patient Bloodtype Patient rh Status Prepregnancy Weight lbs Domestic Partner Domestic Partner Phone Father Name [employer] Status 02/08/20 23 1 CLOSED Fetus Data First Name Last Name Admitted to NICU Weight (g) Sex Living Outcome Pediatric Complications Fetus ID Race Codes Race Delivery Type 3543.46 0704 M [id number] VAGINAL Yusuf Calculation Initial Yusuf Date Initial Exam Date Initial Exam Provider Initial Ultrasound Date Last Menstrual Period Date Ultra Sound Weeks Gestation 0 Eighteen To Twenty Week Yusuf Update Ultra Sound Date Fundal Height At Umbil Quickening Date Ultra Sound Latest Weeks Gestation Final Yusuf Confirmed By Final Yusuf Confirmed Date Final Yusuf Date Ultra Sound Latest Days Gestation 0 0 Menstrual History Last Menstrual Date Menses Monthly On Bcp Conception Prior Menses Frequency Hcg Plus Date Menarche Onset Age Delivery Information Delivery Date Delivery Type Labor Anesthesia Weeks Gestation Incision Type Labor Labor Length Hrs Delivered By Post Complications Tubal Sterilization Discharge Date Comments 3 [facility] Discharge Information Feeding Method Contraceptive Method Maternal HG B and HCT Levels Ob Episode Information Episode Created Date Number of Fetuses Patient Bloodtype Patient rh Status Prepregnancy Weight lbs Domestic Partner Domestic Partner Phone Father Name [employer] Status 02/08/20 23 1 Ab Dumont s OPEN Fetus Data First Name Last Name Admitted to NICU Weight (g) Sex Living Outcome Pediatric Complications Fetus ID Race Codes Race Delivery Type [id number] Yusuf Calculation Initial Yusuf Date Initial Exam Date Initial Exam Provider Initial Ultrasound Date Last Menstrual Period Date Ultra Sound Weeks Gestation 08/30/2023 02/07/2023 02/15/2023 11/23/2022 12 Eighteen To Twenty Week Yusuf Update Ultra Sound Date Fundal Height At Umbil Quickening Date Ultra Sound Latest Weeks Gestation Final Yusuf Confirmed By Final Yusuf Confirmed Date Final Yusuf Date Ultra Sound Latest Days Gestation 0 [email or web address] 03/08/2023 08/30/19 24 0 Pre- Flowsheet Flowsheet Date 02/07/2023 Loaiza Score Blood Edema Fundus Height Fundus Units Glucose Ketones Leukocytes Nitrite Labor Signs Protein Cervic Dilation Cervic Effacement Cervic Station Type Weight in lbs Pre/Post Dialysis Refused With clothes 164.02922542398 BP Diastolic BP Location Tested BP Systolic BP Type 78 L arm 128 sitting Fetus Heart Rate Present Fetus Movement Comments Flowsheet Date 02/15/2023 Loaiza Score Blood Edema Fundus Height Fundus Units Glucose Ketones Leukocytes Nitrite Labor Signs Protein Cervic Dilation Cervic Effacement Cervic Station Type Weight in lbs Pre/Post Dialysis Refused BP Diastolic BP Location Tested BP Systolic BP Type Fetus Heart Rate Present Fetus Movement Comments Flowsheet Date 03/08/2023 Loaiza Score Blood Edema Fundus Height Fundus Units Glucose Ketones Leukocytes Nitrite Labor Signs Protein Cervic Dilation Cervic Effacement Cervic Station Type Weight in lbs Pre/Post Dialysis Refused Weight 167.320372191785 BP Diastolic BP Location Tested BP Systolic BP Type 70 125 Fetus Heart Rate Present A 145 Fetus Movement Comments Menstrual History Last Menstrual Date Menses Monthly On Bcp Conception Prior Menses Frequency Hcg Plus Date Menarche Onset Age 0811/23/2022 Genetic Screening And Infection History Question Response Note Patient's Age Will Be 35 Yea rs Or Older At Estimated Date of Delivery false Thalassemia (Lao, Lithuanian, Mediterranean, Or Background): MCV < 80 false Neural Tube Defect (Meningom yelocele, Spina Bifida, Or Anencephaly) false Congenital Heart Defect false Down Syndrome false pt's cousin, dad s side Omega-Sachs (eg, Scientology, Cajun, Bruneian-Donley) f alse Fabian Disease false Sickle Cell Disease Or Trait () false Hemophilia Or Other Blood Disorders false Muscular Dystrophy false Cystic Fibrosis false Nikunj's Chorea false Intellectual Disability/Autism false If Yes, Was Person Tested For Fragile X? false Other Inherited Genetic Or Chromosomal Disorder false Maternal Metabolic Disorder (eg, Type 1 Diabetes, PKU) false Patient Or Baby's Father Had A Child With Defects Not Listed Above false Recurrent Loss, Or A Stillbirth false Medications (including Suppl ements, Vitamins, Herbs, OTC Drugs), Illicit/Recreational Drugs, Alcohol false If Yes, Agent(s) And Strength/Dosage false Any Other Genetic History false Live With Someone With TB Or Exposed To TB false Patient Or Partner Has History Of Genital Herpes false Rash Or Viral Illness Since Last Menstrual Perio d false History Of STD, Gonorrhea, Chlamydia, HPV, Syphi lis false Other Infection History false History of HIV false History of Hepatitis false Prior GBS-infected child false Hemoglobinopathy Or Carrier false Other Structural Defect false Recent Travel History Outside of Country false Mental Retardation/Autism false Delivery Information Delivery Date Delivery Type Labor Anesthesia Weeks Gestation Incision Type Labor Labor Length Hrs Delivered By Post Complications Tubal Sterilization Discharge Date Comments Discharge Information Feeding Method Contraceptive Method Maternal HG B and HCT Levels
== END 2025-03-15 23:55 | disposition home or self-care (01) ==
LOC: OPOB 07:13 → OBGYN 08:15
PROVIDERS: Admitting Provider Obstetrics & Gynecology; PCP Nurse Practitioner Family; Visit Provider Obstetrics & Gynecology
DX: O02.1 Missed abortion (principal); Z87.891 Personal history of nicotine dependence
CPT/HCPCS: 36415; 59409; 85025; 86850; 86900; 88305; G0378; J9999